=== PATIENT | female | born 1975 | race Native Hawaiian/Other Pacific Islander ===

== ENCOUNTER 2021-05-27 14:43 | Outpatient (CLI) | payer BC, OTHER | END 2021-05-27 22:18 | disposition home or self-care (01) | LOC: LAB 14:43 | PROVIDERS: ATTEND Nurse Practitioner Family | DX: J02.9 Acute pharyngitis, unspecified (principal); R51.9 Headache, unspecified; Z11.52 Encounter for screening for COVID-19 | CPT/HCPCS: 87635; U0003 ==